=== PATIENT | male | born 1930 | race Caucasian/White ===

== ENCOUNTER 2017-03-02 09:16 | Emergency (ER) | payer MEDICARE, BC ==
[~2017-03-02] VITALS: Ht 170.2 cm; Wt 68.0 kg
--- NOTE | ~2017-03-02 | CT4 ---
[facility] A Service of [facility] & [facility] / [facility] RADIOLOGY TEXT RESULTS PATIENT: JAIME TURNER LOCATION: [facility] : 30 UNIT #: [id number] AGE: [address]: Afia Herrmann MD SEX: M ORDER DR: [id number] [facility] [address] [place], [place] [address] [id number] MR#: [id number] Acc #: [id number] NAME: JAIME TURNER : 1930 SEX: M STUDY DATE/TIME: 03/02/2017 10:52 UNIT: [facility] ROOM: STUDY DESCRIPTION: CT Abd and Pelv Wo Cont Attending Physician: Afia Herrmann M.D. Ordering Physician: Afia Herrmann M.D. MEDICAL IMAGING REPORT This report is preliminary unless electronic signature is present EXAM CT abdomen and pelvis 03/02 INDICATIONS Right flank pain with difficulty urinating that started yesterday. History of kidney stones. TECHNIQUE Axial noncontrast images were obtained through the abdomen and pelvis. Multiplanar reformats were obtained. This CT exam was performed with one or more of the following radiation dose reduction techniques: automatic exposure control, adjustment of mA and/or kV according to patient size, and iterative reconstruction. COMPARISON STUDIES Comparison made with 02/17/2017. FINDINGS ABDOMEN: There is atherosclerotic disease and coronary artery disease. 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 Gallbladder surgically absent. Non-obstructing stone lower pole right kidney is unchanged. No ureteral stones are seen on either side, and there is no hydronephrosis. There is a parapelvic cyst in the left kidney. Unenhanced solid organs are otherwise normal. Scattered colonic diverticula are seen. Unopacified GI tract is otherwise unremarkable. PELVIS: Urinary bladder is distended. Posterior bladder diverticulum is again seen. There is some thickening of the left posterolateral bladder wall which is nonspecific. Followup with urinalysis results recommended, as neoplasm is not excluded. There is colonic diverticulosis. Postoperative changes are noted in the left proximal femur. Lumbar compression fractures, as well as a T12 compression fracture, do not STS. [facility] A Service of [facility] & [facility] / [facility] RADIOLOGY TEXT RESULTS PATIENT: JAIME TURNER LOCATION: [facility] #: [id number] : 30 UNIT #: [id number] AGE: [address]: Afia Herrmann MD SEX: M ORDER DR: appear significantly changed. IMPRESSION 1. Distended urinary bladder which could indicate a bladder outlet obstruction. No ureteral stones are seen on either side and there is no hydronephrosis. 2. Stable non-obstructing stone right kidney. 3. Apparent wall thickening in the left posterolateral urinary bladder. Correlation with urinalysis results recommended. Neoplasm not completely excluded in this location. Cystoscopy may be ultimately indicated. 4. Colonic diverticulosis without diverticulitis. No bowel obstruction. 5. Atherosclerotic disease and coronary artery disease. 6. Cholecystectomy. Dictated by... Vikram Cerda Jr., M.D. THIS IS AN ELECTRONICALLY VERIFIED REPORT Vikram Cerda Jr., M.D. at 03/03/2017 4:38 PM LEANNA/louisa TD: 03/02/2017 21:58 JOB #: [id number] MEDICAL IMAGING REPORT Page 1 of 1 COPY
[~2017-03-02 09:16] MED LIST: ASPIRIN; ASPIRIN81 M1 PO; ASPIRIN81 M2 PO; AVADART; AVODART0.5 MG PO; BETAPACE; BUMEX; BUMEX2 MG PO; COUMADIN; COUMADIN6 MG PO; HYTRIN; JOINT FORMULA PO; LOSARTAN POTASS50 MG PO; MULTI VITAMIN1 EACH PO; PLAVIX; SYNTHROID; SYNTHROID75 MCG PO; SYNTHROID88 MCG PO; TOPROL XL; TOPROL XL PO; ZOCOR; ZOCOR20 MG PO; [UNRECOGNIZED DRUG - OTHER] PO
[2017-03-02 09:46] LABS: URINE SOURCE CLEAN CATCH
[2017-03-02 09:51] LABS: URINE APPEARANCE CLEAR; URINE BILIRUBIN NEG (NEG); URINE BLOOD NEG (NEG); URINE COLOR YELLOW; URINE GLUCOSE NEG (NEG); URINE KETONE NEG (NEG); URINE LEUKOCYTE ESTERASE NEG (NEG); URINE NITRATE NEG (NEG); URINE PROTEIN NEG (NEG); URINE UROBILINOGEN 0.2 MG/DL (NEG)
[2017-03-02 10:00] LABS: CULTURE INDICATED? NO
[2017-03-02 10:37] LABS: BASOPHIL# 0.1 X10e3 (0-0.3); BASOPHIL% 2.2 % (0-2.5); EOSINOPHIL# 0.3 X10e3 (0-0.7); EOSINOPHIL% 7.6 % (0.0-7.0); HEMATOCRIT 31.7 % (38.0-50.0); HEMOGLOBIN 10.7 gm/dL (13.0-16.0); LYMPHOCYTE# 1.1 X10e3 (1.0-3.5); LYMPHOCYTE% 26.9 % (17.0-45.0); MEAN CELL VOLUME 92.7 FL (83-96); MEAN CORPUSCULAR HEMOGLOBIN 31.3 PG (28-34); MEAN CORPUSCULAR HGB CONC 33.8 g/dL (30-36); MEAN PLATELET VOLUME 6.8 FL (6.5-11.5); MONOCYTE# 0.4 X10e3 (0-1.0); MONOCYTE% 10.3 % (3.0-12.0); NEUTROPHIL# 2.2 X10e3 (1.5-7.1); PLATELET COUNT 145 X10e3 (140-420); RED BLOOD COUNT 3.42 X10e (3.90-5.60); RED CELL DISTRIBUTION WIDTH 16.3 % (11.0-15.5); WHITE BLOOD COUNT 4.2 X10e3 (4.0-10.5)
[2017-03-02 10:40] LABS: DIFF IND NO
[2017-03-02 11:01] LABS: ALBUMIN SERUM 3.4 g/dL (3.5-5.0); BILIRUBIN, DIRECT 0.1 mg/dL (0.0-0.2); BILIRUBIN,INDIRECT 0.5 mg/dL (0.0-0.9); BILIRUBIN,TOTAL 0.6 mg/dL (0.2-2.0); BUN/CREATININE RATIO 19.16; CREATININE SERUM 1.2 mg/dL (0.6-1.4); GLOM FILT RATE Estimated 54.4 mL/min (>60); POTASSIUM 4.3 mmol/L (3.5-5.1); PROTEIN TOTAL SERUM 6.7 g/dL (6.0-8.3)
== END 2017-03-02 13:22 | disposition home or self-care (01) ==
LOC: CED 09:16
DX: R33.9 Retention of urine, unspecified (principal); I48.91 Unspecified atrial fibrillation; E78.5 Hyperlipidemia, unspecified; I11.0 Hypertensive heart disease with heart failure; I50.9 Heart failure, unspecified; Z90.49 Acquired absence of other specified parts of digestive tract; Z98.890 Other specified postprocedural states
CPT/HCPCS: 51702; 74176; 80048; 80076; 81003; 83690; 85025; 99284